=== PATIENT | male | born 1975 | race Caucasian/White ===

== ENCOUNTER → 2017-07-09 | Outpatient (CLI) | payer OTHER | END | disposition home or self-care (01) | LOC: GMAM 13:02 | PROVIDERS: ATTEND Family Medicine | DX: R53.82 Chronic fatigue, unspecified (principal) ==

== ENCOUNTER → 2017-08-10 | Outpatient (CLI) | payer OTHER | LOC: SL 20:18 | PROVIDERS: ATTEND Family Medicine | DX: G47.00 Insomnia, unspecified (principal); R06.83 Snoring ==

== ENCOUNTER → 2017-10-04 | Outpatient (CLI) | payer OTHER | LOC: SL 20:23 | PROVIDERS: ATTEND Family Medicine | DX: G47.30 Sleep apnea, unspecified (principal); G47.00 Insomnia, unspecified; R06.83 Snoring ==

== ENCOUNTER → 2017-11-08 | Outpatient (CLI) | payer OTHER | LOC: GMAM 16:38 | PROVIDERS: ATTEND Family Medicine | DX: E29.1 Testicular hypofunction (principal); E55.9 Vitamin D deficiency, unspecified ==